=== PATIENT | female | born 1975 | race Caucasian/White ===

== ENCOUNTER 2017-03-02 10:33 | Emergency (ER) | payer MEDICARE ==
[~2017-03-02 10:33] MED LIST: ASPIR-LOW81 MG PO; CLARITIN10 MG PO; GLUCOPHAGE1000 MG PO; HUMULIN R100 UNIT/1 SQ; LANTUS100 UNIT/1 SQ; LIPITOR20 MG PO; LOPRESSOR 25 MG25 MG PO
[2017-03-02 11:44] LABS: HEMOGLOBIN 14.9 gm/dl (12.3-15.3); RED BLOOD COUNT 4.89 M/UL (4.00-5.10)
[2017-03-02 11:45] LABS: WHITE BLOOD COUNT 5.7 K/UL (4.5-11.0)
[2017-03-02 11:55] LABS: BUN/CREATININE RATIO 14 (0-10)
== END 2017-03-02 16:22 | disposition home or self-care (01) ==
LOC: ER1 10:33
PROVIDERS: Nurse Practitioner Family
DX: R20.2 Paresthesia of skin (principal); R90.82 White matter disease, unspecified; E11.9 Type 2 diabetes mellitus without complications; F17.210 Nicotine dependence, cigarettes, uncomplicated; Z88.0 Allergy status to penicillin
CPT/HCPCS: 36415; 70551; 71010; 80053; 85025; 99284

== ENCOUNTER 2021-07-04 13:12 | Emergency (ER) | payer BC ==
[~2021-07-04 13:12] MED LIST changes: +ALAVERT10 MG PO; +ANUSOL SUPP EAC12 EA PR; +HUMULIN 70100 UNIT/1 SC; +IBUPROFEN600 MG PO; +TAMIFLU75 MG PO; +TESSALON PERLE100 MG PO; +ZOFRAN4 MG PO
== END 2021-07-04 15:40 | disposition home or self-care (01) ==
LOC: ER1 13:12
DX: U07.1 COVID-19 (principal); E11.9 Type 2 diabetes mellitus without complications; F17.200 Nicotine dependence, unspecified, uncomplicated; Z90.49 Acquired absence of other specified parts of digestive tract
CPT/HCPCS: 0240U; 99284

== ENCOUNTER → 2021-07-19 | Outpatient (CLI) | payer BC ==
[2021-07-19 10:04] LABS: HEMOGLOBIN 11.8 gm/dl (12.3-15.3); RED BLOOD COUNT 3.86 M/UL (4.00-5.10); WHITE BLOOD COUNT 18.1 K/UL (4.5-11.0)
[2021-07-19 10:30] LABS: BUN/CREATININE RATIO 19 (0-10)
[2021-07-20 09:14] LABS: CREATININE, URINE 26.3 mg/dL (Not Estab.)
== END ==
LOC: LAB 09:24
PROVIDERS: Physician Assistant
DX: E78.5 Hyperlipidemia, unspecified (principal); E55.9 Vitamin D deficiency, unspecified; R53.83 Other fatigue; E11.9 Type 2 diabetes mellitus without complications; B97.21 SARS-associated coronavirus as the cause of diseases classified elsewhere; R91.8 Other nonspecific abnormal finding of lung field
CPT/HCPCS: 36415; 71046; 80053; 80061; 82043; 82570; 82607; 83036; 84439; 84443; 85025

== ENCOUNTER 2021-07-23 00:55 | Emergency (ER) | payer BC ==
[2021-07-23 01:42] LABS: HEMOGLOBIN 12.1 gm/dl (12.3-15.3); RED BLOOD COUNT 3.95 M/UL (4.00-5.10); WHITE BLOOD COUNT 20.1 K/UL (4.5-11.0)
[2021-07-23 02:58] LABS: BUN/CREATININE RATIO 18 (0-10)
== END 2021-07-23 10:32 | disposition short-term general hospital (02) ==
LOC: ER1 00:55
PROVIDERS: Physician Assistant
DX: U07.1 COVID-19 (principal); J12.82 Pneumonia due to coronavirus disease 2019; A41.9 Sepsis, unspecified organism; K04.7 Periapical abscess without sinus; F17.210 Nicotine dependence, cigarettes, uncomplicated; E11.9 Type 2 diabetes mellitus without complications; Z79.4 Long term (current) use of insulin; E78.5 Hyperlipidemia, unspecified; Z88.0 Allergy status to penicillin; R65.10 Systemic inflammatory response syndrome (SIRS) of non-infectious origin without acute organ dysfunction
CPT/HCPCS: 80053; 81001; 82550; 82553; 83605; 83874; 83880; 84484; 85025; 85610; 85730; 87040; 87086; 93005; 96374; 99285; Q9967